=== PATIENT | male | born 1965 | race Hispanic/Latino ===

== ENCOUNTER 2018-04-27 13:51 | Inpatient (IN) | payer SELFPAY ==
[2018-04-27] MEDS ORDERED: NA CHLORIDE 0.9% 500 ML ONE ×2 (14:32→16:28)
[2018-04-27 15:07] LABS: Absolute Lymphocytes (CBC) 0.9 K/uL (0.7-4.9); Absolute Monocytes 0.6 K/uL (0.1-1.3); Basophils % 0.6 % (0-1.3); Eosinophils % 1.2 % (0-4.4); Lymphocytes % 8.6 % (15.3-44.8); MCH 31.5 pg (27.0-35.0); MCV 93.2 fL (80-100); Monocytes % 5.5 % (3.3-12.3); Protime INR 1.14; RBC Red Blood Cell Count 4.19 M/uL (4.33-5.43)
[2018-04-27 15:20] LABS: Digoxin Level 2.1 ng/mL (0.80-2.00); Potassium 4.8 mmol/L (3.5-5.1)
--- NOTE | 2018-04-27 15:21 | RAD REPORT ---
EXAM DESCRIPTION: RAD - Chest Single View - 04/27/2018 3:07 pm CLINICAL HISTORY: MALAISE Chest pain. COMPARISON: No comparisons FINDINGS: Portable technique limits examination quality. The lungs are underinflated resulting in vascular crowding. The heart is mildly enlarged in size with a single lead pacer/ defibrillator device present. No displaced fractures. IMPRESSION: Mild CHF/ volume overload pattern.
--- NOTE | 2018-04-27 15:57 | ER ---
Nurse's Notes [facility] Name: Kemar Lerma Age: 52 yrs Sex: Male : 1965 Arrival Date: 04/27/2018 Time: 13:55 Bed 3 Private MD: Out, [facility] Diagnosis: Hypotension;Acute kidney failure Presentation: 04/27 14:01 Presenting complaint: Patient states: His blood sugar has been high. He was seen in the [facility] emergency room in [place] on Monday and they were going to transfer him to [place] for renal failure. They followed up with the head chopper, who didn't say anything to them about dialysis, but told him to come to the ER because his blood pressure had been running low. He decided not to come until today because he couldn't get a ride yesterday. Denies fever. Denies pain. Transition of care: patient was not received from another setting of care. Onset of symptoms was March 2018. Risk Assessment: Do you want to hurt yourself or someone else? Patient reports no desire to harm self or others. Initial Sepsis Screen: Does the patient meet any 2 criteria? Systolic BP < 90 mmHg. HR > 90 bpm. Does the patient have a suspected source of infection? No. Patient's initial sepsis screen is negative. Care prior to arrival: None. 14:01 Method Of Arrival: Ambulatory [facility] 14:01 Acuity: CHAGO 2 aj Triage Assessment: 14:09 General: Appears in no apparent distress. comfortable, Behavior is calm, cooperative, aj1 appropriate for age. Pain: Denies pain. Historical: - Allergies: 14: No Known Allergies; aj1 - Home Meds: 14:09 Vitamin D3 1,000 unit oral cap daily [Active]; levetiracetam 500 mg oral tab 1 tab 2 aj1 times per day [Active]; allopurinol 300 mg Oral tab 1 tab once daily [Active]; digoxin 250 mcg Oral tab 1 tab once daily [Active]; spironolactone 25 mg oral tab [Active]; warfarin 2.5 mg Oral tab 1 tab once daily [Active]; glipizide 5 mg Oral tab 1 tab once daily [Active]; bumetanide 1 mg Oral tab 1 tab once daily [Active]; Vitamin D2 50,000 unit oral cap 1 cap once daily [Active]; lisinopril 10 mg Oral tab 1 tab once daily [Active]; atorvastatin 40 mg oral tab 1 tab once daily [Active]; - PMHx: 14:09 Diabetes - IDDM; pacemaker/defibrillator; TBI; CVA; Hyperlipidemia; Hypertension; Gout; aj1 CHF; - Immunization history:: Flu vaccine is not up to date. - Social history:: Smoking status: Patient uses tobacco products, denies chronic smoking, but will smoke occasionally. - Ebola Screening: : Patient denies travel to an Ebola-affected area in the 21 days before illness onset. Screenin:58 Abuse screen: Denies threats or abuse. Denies injuries from another. Nutritional ph screening: No deficits noted. Tuberculosis screening: No symptoms or risk factors identified. Fall Risk None identified. Assessment: 14:45 General: Appears in no apparent distress. comfortable, well groomed, Behavior is calm, ph cooperative, appropriate for age, Reports fatigue for >3 days, Denies fever, feeling ill. Pain: Denies pain. Neuro: Level of Consciousness is awake, alert, obeys commands, Oriented to person, place, time, situation, Reports dizziness, Denies difficulty swallowing, headache. Cardiovascular: Reports lightheadedness, Denies chest pain, nausea, shortness of breath, vomiting, Capillary refill < 3 seconds in bilateral fingers Patient's skin is warm and dry. Rhythm is sinus rhythm. Respiratory: Airway is patent Respiratory effort is even, unlabored, Respiratory pattern is regular, symmetrical. GI: Patient currently denies abdominal pain, diarrhea, nausea, vomiting. Derm: Skin is intact, is healthy with good turgor, Skin is pink, warm \T\ dry. Musculoskeletal: Circulation, motion, and sensation intact. Range of motion: intact in all extremities. 15:45 Reassessment: Patient appears in no apparent distress at this time. Patient and/or ph family updated on plan of care and expected duration. Pain level reassessed. Patient is alert, oriented x 3, equal unlabored respirations, skin warm/dry/pink. Patient denies pain at this time. 16:55 Reassessment: Patient appears in no apparent distress at this time. Patient and/or ph family updated on plan of care and expected duration. Pain level reassessed. Patient is alert, oriented x 3, equal unlabored respirations, skin warm/dry/pink. Dr Evans at bedside to speak w/ pt. Vital Signs: 14:09 BP 82 / 52; Pulse 93; Resp 20; Temp 97.9(TE); Pulse Ox 97% on R/A; Weight 107.5 kg (R); aj1 Height 5 ft. 7 in. (170.18 cm) (R); Pain 0/10; 15:02 BP 80 / 60; Pulse 92; Resp 18; Pulse Ox 97% on R/A; ph 15:30 BP 85 / 53; Pulse 74; Resp 16; Pulse Ox 98% on R/A; ph 16:00 BP 88 / 56; Pulse 76; Resp 16; Pulse Ox 99% on R/A; ph 16:30 BP 97 / 65; Pulse 75; Resp 18; Pulse Ox 98% on R/A; ph 16:57 BP 100 / 69; Pulse 78; Resp 16; Temp 97.5; Pulse Ox 98% on R/A; ph 17:20 BP 91 / 55; Pulse 74; Resp 16; Temp 97.5; Pulse Ox 98% on R/A; ph 14:09 Body Mass Index 37.12 (107.50 kg, 170.18 cm) aj1 Vitals: 15:02 Cardiac Rhythm Assessment Sinus rhythm. ph ED Course: 13:55 Patient arrived in ED. sb2 13:56 Out, [facility] is Private Physician. sb2 14:05 Triage completed. aj1 14:09 Arm band placed on Patient placed in an exam room. aj1 14:16 Reed Graham MD is Attending Physician. gs 14:32 EKG done, by geoscience technician. reviewed by Reed Graham MD. sm3 14:45 Initial lab(s) drawn, by md, sent to lab. Inserted saline lock: 20 gauge in left ph antecubital area, using aseptic technique. Blood collected. 14:58 Marjan Phillips, RN is Primary Nurse. ph 14:59 Patient has correct armband on for positive identification. Bed in low position. Call ph light in reach. Side rails up X 1. conveyor monitor on. Pulse ox on. NIBP on. 15:07 XRAY Chest (1 view) In Process Unspecified. EDMS 15:45 Echocardiogram with doppler done by it technical architect. tc 15:55 Maria Elena Evans MD is Hospitalizing Provider. gs 17:30 No provider procedures requiring assistance completed. Patient transferred, IV remains ph in place. Administered Medications: 15:04 Drug: NS 0.9% 500 ml Route: IV; Rate: bolus; Site: left antecubital; ph 15:30 Follow up: Response: No adverse reaction; Blood pressure is elevated; IV Status: ph Completed infusion 16:35 Drug: NS 0.9% 500 ml Route: IV; Rate: 500 bolus; Site: left antecubital; ph 17:00 Follow up: Response: No adverse reaction; IV Status: Completed infusion ph Point of Care Testing: Blood Glucose: 14:45 Blood Glucose: 304 mg/dL; ph Ranges: Outcome: 15:56 Decision to Hospitalize by Provider. 17:34 Admitted to Tele accompanied by tech, family with patient, via wheelchair, room 412, ph with chart. 17:34 Condition: stable 17:35 Patient left the ED. ph Signatures: Dispatcher [employer] EDAna Paula Cameron RN RN aj1 Toyin Hodges, tree deadener EKG Marjan Parada RN RN ph GrahamReed MD MD Shelli Velasquez2 Beverley Knapp sm3 Corrections: (The following items were deleted from the chart) 17:34 17:31 Condition: stable ph ph 17:34 17:31 Transferred by ground EMS to [facility], Transfer form ph completed. X-rays sent w/ patient. ph 17:34 17:31 Instructed on the need for transfer, ph ph
--- NOTE | 2018-04-27 15:57 | EDPHYS ---
Physician Documentation [facility] Name: Kemar Lerma Age: 52 yrs Sex: Male : 1965 Arrival Date: 04/27/2018 Time: 13:55 Bed 3 Private MD: Out, [facility] ED Physician Reed Graham HPI: 04/27 15:50 This 52 yrs old Male presents to ER via Ambulatory with complaints of Kidney gs Problem. 15:50 The patient has experienced near-syncope. Onset: The symptoms/episode began/occurred 5 gs day(s) ago. Duration: The patient has had multiple episodes. Context: DX RENAL FAILURE BP LOW IN NEPHROS OFFICE A COUPLE OF DAYS AGO TOLD TO SEEK HOSPITAL CARE. Associated injury: The patient did not suffer any apparent associated injury. Associated signs and symptoms: Pertinent negatives: chest pain, confusion. Current symptoms: Currently, the patient is not experiencing any symptoms. The patient has experienced similar episodes in the past, a few times. Historical: - Allergies: 14:09 No Known Allergies; aj1 - Home Meds: 14:09 Vitamin D3 1,000 unit oral cap daily [Active]; levetiracetam 500 mg oral tab 1 tab 2 aj1 times per day [Active]; allopurinol 300 mg Oral tab 1 tab once daily [Active]; digoxin 250 mcg Oral tab 1 tab once daily [Active]; spironolactone 25 mg oral tab [Active]; warfarin 2.5 mg Oral tab 1 tab once daily [Active]; glipizide 5 mg Oral tab 1 tab once daily [Active]; bumetanide 1 mg Oral tab 1 tab once daily [Active]; Vitamin D2 50,000 unit oral cap 1 cap once daily [Active]; lisinopril 10 mg Oral tab 1 tab once daily [Active]; atorvastatin 40 mg oral tab 1 tab once daily [Active]; - PMHx: 14:09 Diabetes - IDDM; pacemaker/defibrillator; TBI; CVA; Hyperlipidemia; Hypertension; Gout; aj1 CHF; - Immunization history:: Flu vaccine is not up to date. - Social history:: Smoking status: Patient uses tobacco products, denies chronic smoking, but will smoke occasionally. - Ebola Screening: : Patient denies travel to an Ebola-affected area in the 21 days before illness onset. ROS: 15:50 All other systems are negative. Exam: 15:50 Head/Face: Normocephalic, atraumatic. Eyes: Pupils equal round and reactive to light, gs extra-ocular motions intact. Lids and lashes normal. Conjunctiva and sclera are non-icteric and not injected. Cornea within normal limits. Periorbital areas with no swelling, redness, or edema. ENT: Nares patent. No nasal discharge, no septal abnormalities noted. Tympanic membranes are normal and external auditory canals are clear. Oropharynx with no redness, swelling, or masses, exudates, or evidence of obstruction, uvula midline. Mucous membranes moist. Neck: Trachea midline, no thyromegaly or masses palpated, and no cervical lymphadenopathy. Supple, full range of motion without nuchal rigidity, or vertebral point tenderness. No Meningismus. Chest/axilla: Normal chest wall appearance and motion. Nontender with no deformity. No lesions are appreciated. Cardiovascular: Regular rate and rhythm with a normal S1 and S2. No gallops, murmurs, or rubs. Normal PMI, no JVD. No pulse deficits. Respiratory: Lungs have equal breath sounds bilaterally, clear to auscultation and percussion. No rales, rhonchi or wheezes noted. No increased work of breathing, no retractions or nasal flaring. Abdomen/GI: Soft, non-tender, with normal bowel sounds. No distension or tympany. No guarding or rebound. No evidence of tenderness throughout. Back: No spinal tenderness. No costovertebral tenderness. Full range of motion. Skin: Warm, dry with normal turgor. Normal color with no rashes, no lesions, and no evidence of cellulitis. MS/ Extremity: Pulses equal, no cyanosis. Neurovascular intact. Full, normal range of motion. Neuro: Awake and alert, GCS 15, oriented to person, place, time, and situation. Cranial nerves II-XII grossly intact. Motor strength 5/5 in all extremities. Sensory grossly intact. Cerebellar exam normal. Normal gait. 16:00 ECG was reviewed by the Attending Physician. Vital Signs: 14:09 BP 82 / 52; Pulse 93; Resp 20; Temp 97.9(TE); Pulse Ox 97% on R/A; Weight 107.5 kg (R); aj1 Height 5 ft. 7 in. (170.18 cm) (R); Pain 0/10; 15:02 BP 80 / 60; Pulse 92; Resp 18; Pulse Ox 97% on R/A; ph 15:30 BP 85 / 53; Pulse 74; Resp 16; Pulse Ox 98% on R/A; ph 16:00 BP 88 / 56; Pulse 76; Resp 16; Pulse Ox 99% on R/A; ph 16:30 BP 97 / 65; Pulse 75; Resp 18; Pulse Ox 98% on R/A; ph 16:57 BP 100 / 69; Pulse 78; Resp 16; Temp 97.5; Pulse Ox 98% on R/A; ph 17:20 BP 91 / 55; Pulse 74; Resp 16; Temp 97.5; Pulse Ox 98% on R/A; ph 14:09 Body Mass Index 37.12 (107.50 kg, 170.18 cm) aj1 MDM: 14:26 Patient medically screened. gs 15:50 Differential Diagnosis: cardiac arrhythmia, idiopathic syncope, vasovagal episode, gs RENAL FAILURE DRUG EFFECT. Data reviewed: vital signs, nurses notes. ED course: PT WELL COMPENSATED WALKING WITHOUT ISSUE WILL ADMIT. 04/27 14:14 Order name: Basic Metabolic Panel; Complete Time: 15:42 04/27 14:14 Order name: CBC with Diff; Complete Time: 15:42 04/27 14:14 Order name: PT-INR; Complete Time: 15:42 04/27 14:15 Order name: Digoxin; Complete Time: 15:42 04/27 14:58 Order name: Glucose, Ancillary Testing; Complete Time: 15:42 [facility] 04/27 16:23 Order name: Urine Dipstick--Ancillary (enter results) 04/27 14:14 Order name: XRAY Chest (1 view); Complete Time: 15:42 04/27 14:14 Order name: EKG; Complete Time: 14:33 04/27 14:14 Order name: Cardiac monitoring; Complete Time: 15:05 04/27 14:14 Order name: EKG - Nurse/Tech; Complete Time: 15:05 04/27 14:16 Order name: Echo w/ Doppler 04/27 16:30 Order name: Urine Dipstick-Ancillary [facility] 04/27 14:14 Order name: IV Saline Lock; Complete Time: 15:05 04/27 14:14 Order name: Labs collected and sent; Complete Time: 15: 04/27 14:14 Order name: O2 Per Protocol; Complete Time: 15: 04/27 14:14 Order name: O2 Sat Monitoring; Complete Time: 15:05 EC:00 Rate is 96 beats/min. Rhythm is regular. MO interval is normal. QRS interval is normal. gs QT interval is normal. T waves are Normal. No ST changes noted. Clinical impression: Normal ECG. Interpreted by me. Administered Medications: 15:04 Drug: NS 0.9% 500 ml Route: IV; Rate: bolus; Site: left antecubital; ph 15:30 Follow up: Response: No adverse reaction; Blood pressure is elevated; IV Status: ph Completed infusion 16:35 Drug: NS 0.9% 500 ml Route: IV; Rate: 500 bolus; Site: left antecubital; ph 17:00 Follow up: Response: No adverse reaction; IV Status: Completed infusion ph Point of Care Testing: Blood Glucose: 14:45 Blood Glucose: 304 mg/dL; ph Ranges: Critical Glucose Levels:Adult <50 mg/dl or >400 mg/dl <40 mg/dl or >180 mg/dl Disposition: 04/27/18 15:56 Hospitalization ordered by Maria Elena Evans for Inpatient Admission. Preliminary diagnosis are Hypotension, Acute kidney failure. - Bed requested for Telemetry/MedSurg (Inpatient). - Status is Inpatient Admission. ph - Condition is Stable. - Problem is new. - Symptoms have improved. UTI on Admission? No Signatures: Dispatcher [employer] EDIL Ana Paula Osuna RN RN aj1 Marjan Phillips RN RN Reed Graham MD MD gs Botello, Elizabeth eb Corrections: (The following items were deleted from the chart) 16:21 15:56 Hospitalization Ordered by Maria Elena Evans MD for Inpatient Admission. Preliminary diagnosis is Hypotension; Acute kidney failure. Bed requested for Telemetry/MedSurg (Inpatient). Status is Inpatient Admission. Condition is Stable. Problem is new. Symptoms have improved. UTI on Admission? No. 17:35 16:21 04/27/2018 15:56 Hospitalization Ordered by Maria Elena Evans MD for Inpatient ph Admission. Preliminary diagnosis is Hypotension; Acute kidney failure. Bed requested for Telemetry/MedSurg (Inpatient). Status is Inpatient Admission. Condition is Stable. Problem is new. Symptoms have improved. UTI on Admission? No. eb
[2018-04-27 16:30] LABS: Urine Blood TRACE (NEG); Urine Glucose 2+ (NEG); Urine Protein NEGATIVE (NEG); Urine pH 5.5 (5.0-7.0)
--- NOTE | 2018-04-27 17:26 | P.HP ---
Certification for Inpatient Patient admitted to: Inpatient With expected LOS: >2 Midnights Patient will require the following post-hospital care: None Practitioner: I am a practitioner with admitting privileges, knowledge of patient current condition, hospital course, and medical plan of care. Services: Services provided to patient in accordance with Admission requirements found in Title 42 Section 412.3 of the Code of Federal Regulations Patient History Date of Service: 04/27/18 Primary Care Provider: dr Gomez Reason for admission: Hypotension History of Present Illness: This is a 52-year-old male with significant past medical history of hypertension , diabetes, gout, congestive heart failure, who presented to the ED complaining of having some nausea vomiting that has been going on for about 1-2 weeks. Patient stated that he went to [facility] and was found to have acute kidney injury at that time. Patient has been followed up with Nephrology since 1 year for his worsening of his kidney function. At baseline patient is creatinine is around 1.7-1.8 however at the [facility] patient's creatinine was initially found to be 14 which then came down to 7.8 and 6 on discharge. Patient stated that she is nephrologists yesterday who recommended that he come to the to get a further checked out and possibility of dialysis. Patient does decided to come to the ER for further workup. Patient states that he does not usually follow up with his primary care doctor for his nephrology due to not having any insurance. Patient does however take several medications for his congestive heart failure. Patient also noted that he has been having some hypotension for past couple of days as well. In the ER patient was found to be hypotensive and BUN creatinine showed CRISPIN and thus was admitted to the hospital for further workup Home medications list reviewed: Yes - Past Medical/Surgical History Has patient received pneumonia vaccine in the past: No Diabetic: Yes -: Diabetes -: CKD Past Surgical History: Unable to obtain - Family History Family History: Reviewed- Non-Contributory Review of Systems 10-point ROS is otherwise unremarkable Physical Examination - Physical Exam General: Alert, In no apparent distress, Obese HEENT: Atraumatic, PERRLA, Mucous membr. moist/pink, EOMI, Sclerae nonicteric Neck: Supple, 2+ carotid pulse no bruit, No LAD, Without JVD or thyroid abnormality Respiratory: Clear to auscultation bilaterally, Normal air movement Cardiovascular: Regular rate/rhythm, Normal S1 S2 Gastrointestinal: Normal bowel sounds, Soft and benign, Non-distended, No tenderness Musculoskeletal: No tenderness Integumentary: No rashes Neurological: Normal gait, Normal speech, Normal strength at 5/5 x4 extr, Normal tone, Normal affect Lymphatics: No axilla or inguinal lymphadenopathy - Studies Laboratory Data (last 24 hrs) 04/27/18 14:35: PT 13.5 H, INR 1.14 04/27/18 14:35: WBC 10.7, Hgb 13.2 L, Hct 39.0 L, Plt Count 273 04/27/18 14:35: Sodium 135 L, Potassium 4.8, BUN 67 H, Creatinine 4.40 H, Glucose 325 H Assessment and Plan - Problems (Diagnosis) (1) Hypotension Current Visit: Yes Status: Acute Plan: Low Cardiac outpt Hypotension most Likely 2.2 to Medication he takes for CHF -IV fluids with caution given h/o CHF -If needed will add midodrine -Will add Pressor if needed. Qualifiers: Hypotension type: hypotension due to hypovolemia Qualified Code(s): I95.89 - Other hypotension; E86.1 - Hypovolemia (2) CRISPIN (acute kidney injury) Current Visit: Yes Status: Acute Plan: Pt with H/o CKD and Now with CRISPIN. Recent CR at [facility] was 14 which came down to 6 at discharge -Today BUN.CR is 4.40 with GFR of 17 -Nephrology consulted. Awaiting Reccs at this time -IV fluids with caution -Possible Dialysis if no change in condition (3) Diabetes Current Visit: Yes Status: Chronic Plan: Insulin Sliding scale Qualifiers: Diabetes mellitus type: type 2 Diabetes mellitus long-term insulin use: without long-term use Diabetes mellitus complication status: with kidney complications Diabetes mellitus complication detail: with chronic kidney disease Chronic kidney disease stage: stage 3 (moderate) Qualified Code(s): E11.22 - Type 2 diabetes mellitus with diabetic chronic kidney disease; N18.3 - Chronic kidney disease, stage 3 (moderate) (4) CHF (congestive heart failure) Current Visit: Yes Status: Chronic Plan: Will restart Home medication once BP is stable -Xray with Mild Overload Qualifiers: Heart failure type: unspecified Heart failure chronicity: chronic Qualified Code(s): I50.9 - Heart failure, unspecified (5) Hyperlipidemia Current Visit: Yes Status: Chronic Qualifiers: Hyperlipidemia type: mixed hyperlipidemia Qualified Code(s): E78.2 - Mixed hyperlipidemia (6) HTN (hypertension) Current Visit: Yes Status: Chronic Plan: Currently hypotensive. Hold home medicaiton Qualifiers: Hypertension type: essential hypertension Qualified Code(s): I10 - Essential (primary) hypertension (7) Gout Current Visit: Yes Status: Chronic Discharge Plan: Home Plan to discharge in: 24 Hours - Advance Directives Does patient have a Living Will: No Does patient have a Durable POA for Healthcare: No - Code Status/Comfort Care Code Status Assessed: Yes Critical Care: No
[2018-04-27 17:44] VITALS: BMI 37.0
[2018-04-27] MEDS ORDERED: D50W 25 GM/50 ML SYRINGE IV PRN (17:45)
[2018-04-27] MEDS ORDERED: ACETAMINOPHEN 500 MG TAB PO PRN (17:45)
[2018-04-27] MEDS ORDERED: ONDANSETRON 4 MG/2 ML VIAL IV PRN (17:45)
[2018-04-27] MEDS: INSULIN -REGULAR HUMAN 50 UNIT/0.5 ML ML SQ SCH ×2 (17:45→22:00)
[2018-04-27] MEDS ORDERED: GLUCAGON 1 MG/VIAL IM PRN (17:45)
[2018-04-27] MEDS ORDERED: NA CHLORIDE 0.9% 1,000 ML IV SCH (18:00)
[2018-04-28 06:24] LABS: Absolute Monocytes 0.4 K/uL (0.1-1.3); Absolute Neutrophil 6.4 K/uL (1.8-8.0); Basophils % 0.9 % (0-1.3); Eosinophils % 2.5 % (0-4.4); Hematocrit 35.7 % (39.6-49.0); Lymphocytes % 12.4 % (15.3-44.8); MCH 31.9 pg (27.0-35.0); MCV 94.4 fL (80-100); MPV 8.5 fL (7.6-11.3); Monocytes % 5.4 % (3.3-12.3); RBC Red Blood Cell Count 3.78 M/uL (4.33-5.43)
[2018-04-28 06:41] LABS: Albumin 3.1 g/dL (3.4-5.0); Bilirubin Total 0.2 mg/dL (0.2-1.0); Potassium 4.3 mmol/L (3.5-5.1); Protein, Total 6.6 g/dL (6.4-8.2)
[2018-04-28] MEDS: INSULIN -REGULAR HUMAN 50 UNIT/0.5 ML ML SQ SCH ×4 (07:30→22:02)
--- NOTE | 2018-04-28 10:58 | EKG ---
Test Date: 2018-04-27 Test Time: 14:26:36 Jordan Worker: ANA MEASUREMENT RESULTS: Intervals: Rate: 96 AK: 170 QRSD: 78 QT: 326 QTc: 411 Elkins: P: 19 AK: 170 QRS: 3 T: 53 INTERPRETIVE STATEMENTS: Normal sinus rhythm Normal ECG No previous ECG available for comparison Electronically Signed On 04-28-18 10:55:40 CDT by Gus Chow
--- NOTE | 2018-04-28 12:21 | P.PN ---
Subjective Date of Service: 04/28/18 Primary Care Provider: dr Gomez Chief Complaint: Hypotension Subjective: Improving (Patient is doing better originally admitted with abnormal renal function and hypotension Patient's kidney function is improving) Review of Systems Unremarkable General: Weakness Physical Examination - Vital Signs Temperature: 97.0 F Blood Pressure: 104/72 Pulse: 72 Respirations: 18 Pulse Ox (%): 95 - Physical Exam General: Alert, Oriented x3 Respiratory: Clear to auscultation bilaterally Cardiovascular: No edema, Normal pulses Gastrointestinal: Normal bowel sounds, Soft and benign - Studies Laboratory Data (last 24 hrs) 04/27/18 14:35: PT 13.5 H, INR 1.14 04/27/18 14:35: WBC 10.7, Hgb 13.2 L, Hct 39.0 L, Plt Count 273 04/27/18 14:35: Sodium 135 L, Potassium 4.8, BUN 67 H, Creatinine 4.40 H, Glucose 325 H Assessment & Plan - Problems (Diagnosis) (1) Renal failure (ARF), acute on chronic Current Visit: Yes Status: Acute Plan: Patient is 52 years of age admitted with worsening renal function seen by mgmt consultant as an outpatient renal function is improving patient and in addition was also hypotensive at pressure now stable cultures pending no evidence of sepsis patient was on multiple anti hypertensive medications are home that have all been stopped room-air saturation is satisfactory chest x-ray showed possible mild volume overload Qualifiers: Acute renal failure type: unspecified Chronic kidney disease stage: stage 3 (moderate) Qualified Code(s): N17.9 - Acute kidney failure, unspecified; N18.3 - Chronic kidney disease, stage 3 (moderate)
[2018-04-28] MEDS: NA CHLORIDE 0.9% 1,000 ML IV SCH (12:32)
--- NOTE | 2018-04-28 23:29 | CON ---
Date of Consultation: 04/27/2018 Requesting Provider: Dr. Maria Elena Evans. Reason For Consultation: Acute kidney injury. History Of Present Illness: Mr. Lerma is a 52-year-old male with diabetes, hypertension, with a k nown history of chronic kidney disease, who was following with Dr. Bonds up until late last year. The patient had a baseline creatinine at that time about 1.2 to 1.5. The patient had lost insurance and has not seen any providers for the last several months except for a few ER visits. The patient recently had a visit to the emergency room at [facility], found to have a creatinine of appr oximately 8. He was there for hyperglycemia, received some IV hydration, and was discharged home wit h nephrology followup. That is why I had seen in the clinic on and at that time, the noman gray labs were reviewed and I had noted the patient had a relatively stable creatinine up until 1 month prior to that emergency room visit. The patient had severe hyperglycemia in the ER that day and some serial labs had shown that with hydration improvement of glucose control in the emergency room that the creatinine actually had improved. He was discharged with a creatinine of 6.3. [facility], the patient had extremely low blood pressures, systolic blood pressures in the 60s. The patien t, however, was tired and fatigued, but looked relatively better than the systolic would have portray ed. I had recommend that he go to the emergency room. The patient did not want to take any ambulanc es because taking ambulance would have cost him and thus he said that he would go to the emergency wi th his friend. Actually, he did not come to the emergency room until Monday because of the hour and the distance that it would take to drive at night, and so his friend dropped a note and came in to ta ke him and brought him here in the morning of admission. He was found have systolic in the 90s and s salome that time, the patient has been here on the floor. He has been having titration of his tight gl ucose control, and was receiving IV fluids. His symptoms have improved. Reviewing his chart shows t hat he has been nonoliguric and he has had gradually improving renal parameters. At the current time , he denies any fevers, chills, chest pain, shortness of breath, nausea, vomiting, or diarrhea. Past Medical History: Significant for diabetes and chronic kidney disease. Family History: No kidney disease in the family. Physical Examination: Vital Signs: Blood pressure is 104/72, which improved from blood pressure of 82/52 on admission. Pu lse 72, afebrile. Input and output 1093 in. General: Obese no acute distress. Heart: Regular rhythm. No murmurs, rubs, gallops. Lungs: Clear to auscultation bilaterally. Abdomen: Soft, nontender, nondistended. Positive bowel sounds x4. Extremities: No significant edema. Laboratory Data: CBC was reviewed. Serum chemistry; sodium 137, potassium 4.3, chloride 106, CO2 22 , BUN 53, creatinine 3, glucose 231, calcium 8.2, alkaline phosphatase 130, albumin 3.1. UA with onl y trace blood. Toxicology; digoxin level was 2.1. Impression: 1.Acute kidney injury likely in the setting of volume depletion, which was preceded by extreme hyper glycemia from nonadherent to patient's diabetic regimen. 2.Hypotension, likely from volume depletion. 3.Chronic congestive heart failure. 4.Hypocalcemia. 5.Moderate protein malnutrition. Plan: We will continue IV fluids until today evening, as the patient's p.o. intake has improved, and blood pressure is also improving. The patient may need cardiology evaluation given the patient's ca rdiac history and the need to restart his cardiac medications. Renal function is improving. Avoid N SAIDs. Avoid contrast. Ensure that the patient is on a renal low-potassium diet, and we will continue to follow. /SUMAN Voice ID: [id number] Report ID: [id number]
--- NOTE | 2018-04-28 23:29 | CON ---
Date of Consultation: 04/28/[address] Evans's service on 04/27/2018. I saw the patient on 04/28/2018. Reason For Consultation: Hypotension and history of CHF. History Of Present Illness: Mr. Lerma is a 52-year-old [place] male, has been followed up by Dr. Bingham from a cardiac standpoint and Dr. Gomez . He has a history of congestive hear t failure, status post AICD and pacemaker. He has a history of renal insufficiency, diabetes, CVA, h ypertension, dyslipidemia, and gout. Came in, was hypotensive, was found to have acute renal failure with a creatinine of 4.4 that has improved to 3.0 now. He denies any chest pain, shortness of breat h, nausea, vomiting, diaphoresis, PND, orthopnea, pedal edema, palpitations, or syncope. Allergies: NONE. Review of Systems: Negative. Social History: Negative. Family History: Positive for hypertension and diabetes. Medications: At home include Bumex, digoxin, Aldactone, glipizide lisinopril, and Lipitor. Physical Examination: Vital Signs: Stable. Afebrile. HEENT: Negative. Neck: Supple with no bruits, lymphadenopathy, or JVD. Chest: Clear to auscultation and percussion. Cardiac: Revealed a regular rhythm and rate with an S4 gallops. No murmurs or rubs. Abdomen: Obese, but benign. Extremities: Revealed trace edema. Diagnostic Data: Chest x-ray showed mild failure. Laboratory Data: Creatinine is 3.0 now, glucose is 325. Impression And Plan: 1.Hypotension, most likely secondary to renal failure and polypharmacy. I would definitely get him to stop his CALLIE inhibitor and his diuretics for now. There is an echocardiogram pending that may hel p us decide what medicine to put him on. I think he may be a better candidate for carvedilol from a congestive heart failure standpoint, although he thinks that he has tried these beta-blockers before and he would not do well with him. He is certainly not a candidate for ARB or CALLIE inhibitors. I allie l leave his medical regimen up to Nephrology considering his renal failure. 2.History of pacemaker and defibrillator. 3.Diabetes. 4.History of cerebrovascular accident. 5.Hypertension. 6.Dyslipidemia. 7.Gout. We will see what his echo shows. Otherwise, as far as I am concerned, he can go home whene wily it is okay with Dr. Evans. ANUSHA/SUMAN Voice ID: [id number] Report ID: [id number]
[2018-04-29] MEDS: NA CHLORIDE 0.9% 1,000 ML IV SCH (00:59)
[2018-04-29 03:56] VITALS: O2SAT 98
[2018-04-29 06:45] LABS: Absolute Lymphocytes (CBC) 1.2 K/uL (0.7-4.9); Absolute Monocytes 0.4 K/uL (0.1-1.3); Absolute Neutrophil 6.3 K/uL (1.8-8.0); Basophils % 0.9 % (0-1.3); Eosinophils % 2.3 % (0-4.4); Hematocrit 36.2 % (39.6-49.0); Lymphocytes % 15.2 % (15.3-44.8); MCH 31.7 pg (27.0-35.0); MCV 93.1 fL (80-100); MPV 8.7 fL (7.6-11.3); Monocytes % 5.2 % (3.3-12.3); RBC Red Blood Cell Count 3.89 M/uL (4.33-5.43)
[2018-04-29 07:05] LABS: Albumin 3.1 g/dL (3.4-5.0); Bilirubin Total 0.3 mg/dL (0.2-1.0); Potassium 4.7 mmol/L (3.5-5.1); Protein, Total 6.6 g/dL (6.4-8.2)
[2018-04-29] MEDS: INSULIN -REGULAR HUMAN 50 UNIT/0.5 ML ML SQ SCH ×2 (09:10→12:35)
--- NOTE | 2018-04-29 11:22 | P.DS ---
Admission Date: 04/27/18 Discharge Date: 04/29/18 Primary Care Provider: dr Gomez Disposition: ROUTINE DISCHARGE Discharge Condition: FAIR Reason for Admission: Hypotension - Problems (1) Renal failure (ARF), acute on chronic Current Visit: Yes Status: Acute Qualifiers: Acute renal failure type: unspecified Chronic kidney disease stage: stage 3 (moderate) Qualified Code(s): N17.9 - Acute kidney failure, unspecified; N18.3 - Chronic kidney disease, stage 3 (moderate) Brief History of Present Illness: Patient is 52 years of age admitted with worsening renal function and hypotension Hospital Course: His renal function improved is anti hypertensive medications some of it was stopped digit level was mildly elevated at the time of discharge his creatinine is back down to 2 point was very alert responsive cooperative feeling well vital signs all stable auction a alfredo satisfactory chest clear cardiovascular system muscles normal abdomen soft cultures negative Vital Signs/Physical Exam: Temp Pulse Resp BP Pulse Ox 97.9 F 75 18 110/78 98 04/29/18 08:00 04/29/18 08:00 04/29/18 08:00 04/29/18 08:00 04/29/18 08:00 Laboratory Data at Discharge: WBC 8.2 K/uL (4.3-10.9) 04/29/18 05:22 Hgb 12.3 g/dL (13.6-17.9) L 04/29/18 05:22 Hct 36.2 % (39.6-49.0) L 04/29/18 05:22 Plt Count 236 K/uL (152-406) 04/29/18 05:22 PT 13.5 SECONDS (9.5-12.5) H 04/27/18 14:35 INR 1.14 04/27/18 14:35 Sodium 139 mmol/L (136-145) 04/29/18 05:22 Potassium 4.7 mmol/L (3.5-5.1) 04/29/18 05:22 BUN 38 mg/dL (7-18) H 04/29/18 05:22 Creatinine 2.10 mg/dL (0.55-1.3) H 04/29/18 05:22 Glucose 193 mg/dL (74-106) H 04/29/18 05:22 Total Bilirubin 0.3 mg/dL (0.2-1.0) 04/29/18 05:22 AST 13 U/L (15-37) L 04/29/18 05:22 ALT 19 U/L (12-78) 04/29/18 05:22 Alkaline Phosphatase 126 U/L (45-117) H 04/29/18 05:22 Home Medications: Allopurinol [Zyloprim*] 300 mg PO DAILY 04/27/18 Atorvastatin Calcium 40 mg PO BEDTIME 04/27/18 Bumetanide [Bumex*] 1 mg PO DAILY 04/27/18 Cholecalciferol (Vitamin D3) [Vitamin D 1000 Iu Tab*] 1,000 unit PO DAILY Digoxin [Lanoxin*] 0.25 mg PO DAILY 04/27/18 Ergocalciferol (Vitamin D2) [Vitamin D2] 1 pill PO EVERY 7TH DAY 04/27/18 Glipizide [Glucotrol] 5 mg PO BID 04/27/18 Insulin Degludec [Tresiba Flextouch U-200] 15 unit SQ DAILY AFTER SUPPER Insulin Degludec [Tresiba Flextouch U-200] 24 unit SQ DAILY 04/27/18 Warfarin Sodium [Coumadin*] 2.5 mg PO DAILY 5 PM 04/27/18 Patient Discharge Instructions: Patient to follow up with his primary care doctor. Some was blood pressure medications have been stopped Diet: Low sodium Activity: Ad gladys
[2018-04-29 11:23] VITALS: TEMP 97
[2018-04-29 12:43] VITALS: BP 111/70
--- NOTE | 2018-04-29 17:08 | PN ---
Date of Progress Note: 04/29/2018 NEPHROLOGY PROGRESS NOTE Subjective: Patient is seen at the bedside. No overnight events reported. The patient feels well. He denies any fevers, chills, chest pain, shortness of breath, nausea, vomiting, or diarrhea. Objective: Vital Signs: Blood pressure is 104/72, pulse 72, temperature 97. General: No acute distress. Heart: Regular rate and rhythm. No murmurs, rubs, or gallops. Lungs: Clear auscultation bilaterally. Abdomen: Soft, nontender, nondistended. Positive bowel sounds x4. Extremities: No significant edema. Laboratory Data: CBC reviewed stable. Serum chemistry, sodium 139, potassium 4.7, chloride 109, CO2 28, BUN 38, creatinine 2.1, glucose 193, calcium 8.6, alkaline phosphatase 126, albumin 3.1. Current Medications: Reviewed. Impression: 1.Acute kidney injury in the setting of volume depletion, hyperglycemia. 2.Hypotension from volume depletion. 3.Chronic congestive heart failure. 4.Hypocalcemia. 5.Moderate protein malnutrition. 6.Uncontrolled diabetes mellitus. Plan: IV fluids may be discontinued. Patient is for discharge planning. Agree withholding patient' s lisinopril and Aldactone at this time. Continue on torsemide as well as digoxin per Cardiology. P atient advised to avoid all NSAIDs. Avoid contrast. Patient counseled on renal diet. Case discusse d with nursing staff. Will ensure the patient does have renal diet education upon discharge. Patient has been told to follow with Cardiology within 1 week and in our office within 1-2 weeks. /SUMAN Voice ID: [id number] Report ID: [id number]
--- NOTE | 2018-04-30 08:20 | ECHO ---
HEIGHT: 5 ft 7 in WEIGHT: 236 lb 11.2 oz DATE OF STUDY: 04/27/[address]: Reed Graham MD 2-DIMENSIONAL: YES M.MODE: YES DOPPLER: YES COLOR FLOW: YES TDS: NO PORTABLE: YES DEFINITY: NO BUBBLE STUDY: NO DIAGNOSIS: HYPOTENSION CARDIAC HISTORY: CATHERIZATION: NO SURGERY: NO PROSTHETIC VALVE: NO PACEMAKER: YES MEASUREMENTS (cm) DIASTOLIC (NORMALS) SYSTOLIC (NORMALS) IVSd 1.2 (0.6-1.2) LA Diam 3.5 (1.9-4.0) LVEF 54% LVIDd 4.1 (3.5-5.7) LVIDs 3.0 (2.0-3.5) %FS 28% LVPWd 1.2 (0.6-1.2) Ao Diam 3.5 (2.0-3.7) 2 DIMENSIONAL ASSESSMENT: RIGHT ATRIUM: NORMAL LEFT ATRIUM: NORMAL RIGHT VENTRICLE: NORMAL LEFT VENTRICLE: NORMAL TRICUSPID VALVE: NORMAL MITRAL VALVE: NORMAL PULMONIC VALVE: NORMAL AORTIC VALVE: NORMAL PERICARDIAL EFFUSION: NONE AORTIC ROOT: NORMAL LEFT VENTRICULAR WALL MOTION: NORMAL. DOPPLER/COLOR FLOW: NORMAL. COMMENTS: NORMAL LEFT VENTRICULAR SIZE AND FUNCTION. PACER IN RIGHT VENTRICULAR APEX. NO WALL MOTION ABNORMALITY. NO EFFUSION. TECHNOLOGIST: LADARIUS DEL ANGEL
== END 2018-04-29 13:00 | disposition home or self-care (01) | DRG 683 ==
LOC: ER 13:51 → ERHOLD 15:58 → 4TH 17:17
PROVIDERS: ADMIT Family Medicine; ATTEND Family Medicine
DX: N17.9 Acute kidney failure, unspecified (principal); I13.0 Hypertensive heart and chronic kidney disease with heart failure and stage 1 through stage 4 chronic kidney disease, or unspecified chronic kidney disease; E46 Unspecified protein-calorie malnutrition; E11.22 Type 2 diabetes mellitus with diabetic chronic kidney disease; E11.65 Type 2 diabetes mellitus with hyperglycemia; N18.3 Chronic kidney disease, stage 3 (moderate); I50.9 Heart failure, unspecified; I95.89 Other hypotension; E86.9 Volume depletion, unspecified; E83.51 Hypocalcemia; Z68.37 Body mass index [BMI] 37.0-37.9, adult
CPT/HCPCS: 36415; 71045; 80048; 80053; 80162; 81003; 82962; 85025; 85610; 87040; 93005; 93306; 94760; 96360; 99285; J7030